=== PATIENT | male | born 1955 | race Caucasian/White ===

== ENCOUNTER 2019-09-10 04:05 | Emergency (ER) | payer MEDICARE, MEDICAID ==
[~2019-09-10] VITALS: Ht 172.7 cm; Wt 68.0 kg
[2019-09-10 06:46] VITALS: BP 141/89
[2019-09-10] MEDS ORDERED: traMADol HCL 50 MG TAB PO ONE (07:00)
== END 2019-09-10 07:18 | disposition home or self-care (01) ==
LOC: ER 04:05
DX: S52.502A Unspecified fracture of the lower end of left radius, initial encounter for closed fracture (principal); W19.XXXA Unspecified fall, initial encounter; Y93.89 Activity, other specified; Y92.89 Other specified places as the place of occurrence of the external cause; Y99.8 Other external cause status
CPT/HCPCS: 29125; 73110